=== PATIENT | female | born 1995 | race Caucasian/White ===

== ENCOUNTER 2016-10-19 10:23 | Emergency (ER) | payer MEDICAID ==
[2016-10-19 10:44] VITALS: BP 134/92; PULSE 98; RESP 18; TEMP 98.7; O2SAT 99
--- NOTE | 2016-10-19 10:57 | UCPHY ---
H & P Time Seen by Provider: 10/19/16 10:39 Patient Type: Established HPI/ROS: This patient complains of pain at her umbilical piercing site. She explains the she had had a piece of jewelry at the area for some time and had to force a belly ring in place a week and half ago. She then removed due to discomfort and a few days ago developed pain that felt similar to previous piercing infection when she initially had a piercing. She had some leftover Amoxil from a previous infection and started taking it yesterday. She feels that the discomfort has improved today and is now mild in intensity. She did not notice any associated redness to the area. ROS: No fevers. No purulent drainage. No other dermatologic complaints. No fatigue. 5 point ROS is otherwise negative. Past Medical/Surgical History: Otherwise healthy Smoking Status: Former smoker Physical Exam: Physical Exam Vital signs are normal. General: No acute distress Eyes: Pupils equal and react to light. Extraocular motions are intact. Lungs: No respiratory distress. Cardiac: Brisk capillary refill is intact throughout. Skin: No rash or pallor. The area of the umbilical piercing is clean dry intact. She does have moderate tenderness but no fluctuance and no erythema. No warmth to touch. Neuro: Alert and oriented x3 with no sensorimotor deficits. Initial differential diagnosis: Inflammation at wound site versus early wound infection Constitutional: Initial Vital Signs Temperature (C) 37.1 C 10/19/16 10:39 Heart Rate 98 10/19/16 10:39 Respiratory Rate 18 10/19/16 10:39 Blood Pressure 134/92 H 10/19/16 10:39 O2 Sat (%) 99 10/19/16 10:39 O2 Delivery Mode Room Air Allergies/Adverse Reactions: No Known Allergies Allergy (Verified 02/27/16 18:03) Home Medications: Medication Instructions Recorded Amoxicillin 10/19/16 Cephalexin [Keflex (*)] 500 mg PO TID #21 cap 10/19/16 Fluconazole [Diflucan] 200 mg PO ONCE #2 tablet 10/19/16 MDM/Departure - [facility] ED Course/Re-evaluation: Patient's umbilical findings reveal no overt findings for infection though may be masked by the fact she has already started antibiotics for 24 hours. I counseled regarding this. No clinical evidence of umbilical hernia or other complicating factors - Depart Disposition: Home, Routine, Self-Care Clinical Impression: Pierced navel infection Condition: Good Instructions: Wound Infection (ED) Additional Instructions: Diagnosis: Umbilical piercing infection At the moment your piercing appears well. However given if taken some antibiotics this may be masking an underlying infection Plan: Stop amoxicillin Clean the wound each day with warm soapy water Take ibuprofen anti-inflammatory if he develops redness or discharge then start the Keflex antibiotic as prescribed. Diflucan if needed if he develops a yeast infection while antibiotics. Return for any significant worsening despite the treatment plan Prescriptions: Fluconazole [Diflucan] 200 mg PO ONCE #2 tablet Cephalexin [Keflex (*)] 500 mg PO TID #21 cap Referrals: CHRISTIANO LEDESMA,Juan [Primary Care Provider] - As per Instructions - PQRS PQRS Measurement: NA
== END 2016-10-19 11:00 | disposition home or self-care (01) ==
LOC: CED 10:23
DX: L08.9 Local infection of the skin and subcutaneous tissue, unspecified (principal); Z87.891 Personal history of nicotine dependence
CPT/HCPCS: 99214-PO; G0463-PO